=== PATIENT | male | born 2000 | race Caucasian/White ===

== ENCOUNTER 2023-05-13 18:41 | Emergency (ER) | payer OTHER ==
[~2023-05-13] VITALS: Ht 160 cm; Wt 55.3 kg
[2023-05-13 19:30] VITALS: BP_SYST 120; PULSE 68; RESP 16; TEMP 97.8; O2SAT 97
[2023-05-13] MEDS ORDERED: DIPHTH,PERTUSS(ACELL),TET VAC 0.5 ML VIAL (Tdap) I.M. ONE (19:45)
[2023-05-13] MEDS ORDERED: BACITRACIN 1 GM OINT TP ONE (19:45)
[2023-05-13 20:51] VITALS: BP_SYST 125; PULSE 70; RESP 19; TEMP 97.8; O2SAT 97
== END 2023-05-13 20:51 | disposition home or self-care (01) ==
LOC: SED 18:41
DX: S61.011A Laceration without foreign body of right thumb without damage to nail, initial encounter (principal); Z79.899 Other long term (current) drug therapy; W26.8XXA Contact with other sharp object(s), not elsewhere classified, initial encounter; Y93.89 Activity, other specified; Y92.89 Other specified places as the place of occurrence of the external cause; Y99.8 Other external cause status
CPT/HCPCS: 90715; 99283